=== PATIENT | male | born 1980 | race Caucasian/White ===

== ENCOUNTER 2017-04-14 23:10 | Emergency (ER) | payer OTHER, SELFPAY ==
[2017-04-14 23:10] VITALS: BP 128/89; PULSE 72; RESP 16; TEMP 36.6; O2SAT 97; BMI 25.0
--- NOTE | 2017-04-14 23:27 | ED.DCSUM_ITS ---
- ER Visit Summary Date of Service: 04/14/17 Chief Complaint: [] Right ear pain History of Present Illness: The patient is a 36 M patient stated he inserted a Q -tip too far to his right ear canal and had pain and some bleeding. He has had this happen in the past. He is not ruptured his TM however. Comes in for further evaluation. Current severity mild. No home treatment. Physical Examination: Vital signs reviewed General: Well-nourished well-developed Head: Normocephalic atraumatic Eyes: Pupils equal round and reactive to light extraocular movements intact ENT: Right ear exam shows some very mild bleeding in the canal. TM appears normal without perforation. I can see 90% of it. Neck: Nontender full range of motion Cardiovascular: Regular rate rhythm no murmurs normal S1-S2 Respiratory: No distress clear to auscultation bilaterally chest nontender Abdomen: Soft nontender nondistended normal bowel sounds no masses Back: Nontender no CVA tenderness Extremities: Nontender active range of motion ?4 extremities no trauma Skin: Normal color no trauma Neuro alert oriented cranial nerves II through XII intact normal strength sensation reflexes Test Results: [] Emergency Department Course and Treatment: [] Reassured. He has no hearing loss or ringing in his ear. I do not feel he has TM rupture. Looks like he has an abrasion in his ear canal. Instructed not to use Q-tips. He will follow -up with ENT as needed. Treatment Plan: [] Disposition: [] Impression: [] Right ear canal abrasion This note was generated with [employer] dictation software. It may contain incorrect words, spelling, and punctuation that were not noted in review of the chart prior to signing ED Disposition - Plan for ED Patient: Chief Complaint: Ear Problem
--- NOTE | 2017-04-14 23:27 | ED.DEP ---
ED Disposition - Plan for ED Patient: Disposition: Home or Assisted Living Chief Complaint: Ear Problem Instructions: ED Abrasion Referrals: Joce Ruff MD [STAFF PHYSICIAN] -
== END 2017-04-14 23:42 | disposition home or self-care (01) ==
LOC: ED 23:36
PROVIDERS: Emergency Provider Emergency Medicine
DX: S00.411A Abrasion of right ear, initial encounter (principal); X58.XXXA Exposure to other specified factors, initial encounter; Y93.9 Activity, unspecified; Y92.9 Unspecified place or not applicable
CPT/HCPCS: 99281

== ENCOUNTER 2020-06-09 16:01 | Emergency (ER) | payer OTHER, SELFPAY ==
[2020-06-09 16:02] VITALS: BP 135/101; PULSE 95; RESP 16; TEMP 36.4; O2SAT 98; BMI 29.2
--- NOTE | 2020-06-09 16:25 | EKG12_ITS ---
Test Reason : CHESTPAIN Blood Pressure : / mmHG Vent. Rate : 093 BPM Atrial Rate : 093 BPM P-R Int : 166 ms QRS Dur : 092 ms QT Int : 348 ms P-R-T Axes : 037 001 021 degrees QTc Int : 432 ms Normal sinus rhythm Normal ECG Confirmed by IRAJ LAZARO, LAURA ([id number]), editor map LEONARD POSEY ([id number]) on 06/11/2020 11:51:52 AM Referred By: Confirmed By:LAURA GALO MD
[2020-06-09] MEDS: Aspirin 81 MG TAB.CHEW 324 MG PO (16:32)
[2020-06-09 16:34] VITALS: O2SAT 99
--- NOTE | 2020-06-09 16:40 | RAD_ITS ---
STUDY: X-RAY CHEST REASON FOR EXAM: Male, 40 years old. Chest pain TECHNIQUE: Single frontal view of the chest. COMPARISON: None. FINDINGS: There are a few linear opacities within the left lower lung. Normal size heart. Normal mediastinum and luis. Normal visualized pulmonary arteries. Normal visualized aortic arch and descending thoracic aorta. Normal visualized thoracic spine. Normal visualized ribs, clavicles, and shoulders. There is no demonstrated abnormality of the visualized soft tissue structures of the upper abdomen. RAD/Chest 1 View (Portable) IMPRESSION: Minimal atelectasis and/or scarring within the left lower lung. Electronically Signed: Donna Bang MD at 16:52 EDT Tel , Service support ,
[2020-06-09 16:45] LABS: Absolute Lymphocyte Count 2.25 X10^3/uL (0.83-4.51); Absolute Neutrophil Count 5.4 X10^3/uL (2.0-7.7); Basophil# 0.07 X10^3/uL; Basophil% 0.8 % (0-1); Eosinophil# 0.08 X10^3/uL; Eosinophils% 0.9 % (0-5); Hematocrit 46.9 % (40-54); Hemoglobin 15.7 g/dL (13.0-16.5); Lymphocyte # 2.25 X10^3/ul (0.83-4.51); Lymphocyte % 26.7 % (19-41); Mean Corp Hgb Conc 33.5 g/dL (32-36); Mean Corpuscular Hgb 28.1 pg (27.0-32.0); Mean Corpuscular Volume 83.9 fL (80-94); Mean Platelet Vol. 10.4 fl (6.2-12.0); Monocyte# 0.64 X10^3/uL; Monocyte% 7.6 % (0-10); NRBC Flagged by Analyzer 0 % (0-5); Neutrophil # 5.38 X10^3/uL (2.7-7.7); Neutrophil % 63.8 % (47-70); Platelet Count 362 K/mm3 (150-450); RBC Distribution Width CV 13.7 % (11.6-14.6); RBC Distribution Width SD 42.2 fl (35.1-43.9); Red Blood Count 5.59 M/mm3 (4.6-6.2); White Blood Count 8.4 K/mm3 (4.4-11.0)
--- NOTE | 2020-06-09 16:55 | ED.DCSUM_ITS ---
History of Present Illness Chief Complaint: Chest Pain Informant: Patient Onset: Today Maximum Severity: Mild Narrative: Patient presents complaining of chest pressure that occurred around 9:00 today just after he had completed having sexual relations. Similar post sex chest pain occurred a few weeks ago he did not see a physician, he describes the pain as a tightness does not radiate he has no diaphoresis fever cough no numbness weeks paresthesias, he does not use any medications to enhance sexual performance, he is in fact on no medications other meds for H. pylori and acid reflux. He is having normal bowel bladder habits no fever no cough no coronavirus exposures Past Medical History - Allergies and Home Meds Allergies/Adverse Reactions: Allergies No Known Allergies Allergy (Verified 06/09/20 16:03) Primary Care Physician: NOT,DEFINED [NON-STAFF] - Past Medical History: - - GERD and H. pylori Smoking Status: Former smoker Review of Systems General: Denies: Chills, Fever, Sweats Eyes: Denies: Visual changes - bilaterally, Diplopia ENT: Denies: Rhinorrhea, Sore throat Cardiovascular: Reports: Chest pain. Denies: Palpitations Respiratory: Denies: Dyspnea, Cough, Dyspnea on exertion Gastrointestinal: Denies: Abdominal pain, Nausea, Vomiting, Diarrhea, Melena, Hematochezia Genitourinary: Denies: Dysuria, Hematuria, Frequency Musculoskeletal: Denies: Back pain, Extremity Pain Skin: Denies: Rash, Wounds Neurological: Denies: Headache, Weakness, Numbness Physical Exam Vital Signs/Narrative: Vital Signs Temp Pulse Resp BP Pulse Ox 06/09/20 16:34 99 06/09/20 16:02 97.6 F L 95 16 135/101 H 98 General: Well nourished, Well developed, No Acute Distress Head: Normocephalic, Atraumatic Eyes: Perrl, EOMI ENT: Moist mucous membranes, No rhinorrhea Neck: Supple, Nontender Cardiovascular: Regular rate, Regular rhythm, No murmurs Respiratory: No distress, CTA bilaterally, Chest nontender Abdomen: Soft, Nontender, Nondistended, Normal bowel sounds Back: Nontender, Normal Inspection Extremities: Nontender, No edema Skin: Normal color, No rash Neurological: Alert, Oriented x3, Cranial nerves II-XII grossly intact, Normal Strength, Normal Sensation Psychological: Normal affect, Normal Mood Diagnostic/Tx/Re-eval - Medical Decision Making Patient has no cardiovascular risk factors no hypertension diabetes he does not experience chest pain when he exerts himself, he had a similar episode that occurred with sex 3 weeks ago that resolved spontaneously not see his physicians, he is currently on antibiotics and antiacid medications for GERD and H. pylori. He is resting comfortably the bed he complains of the chest pain is very mild describes as a pressure does not radiate his vital signs are unremarkable, his EKG shows a sinus rhythm rate of 90 no acute injury pattern given all the above ED evaluation\ ED evaluation was unremarkable see the labs, 1 view chest x-ray to my review shows normal cardiopulmonary structures just radiology generally concur see that report, on evaluation he is resting comfortably bed his vital signs remained stable he has no complaints I discussed the differential with him eluding coronary syndrome acute PR etc. we discussed inpatient versus outpatient management, additional ED testing declined, he does not wish to be admitted he is feeling better prefers outpatient management understands the risks involved a nd wants to see his outpatient providers will return for change in symptoms Home stable declined admission Final impression chest pain after sex ED Disposition - Plan for ED Patient: Instructions: ED Chest Pain, Uncertain Cause Referrals: NOT,DEFINED [NON-STAFF] - Additional Instructions: Please follow-up with your outpatient providers return for change in symptoms
[2020-06-09 17:37] LABS: Anion Gap 3 (5-15); BUN 13 mg/dL (7-18); BUN/Creat Ratio 11.4 RATIO (10-20); Calcium,Total 9.3 mg/dL (8.5-10.1); Chloride 107 mmol/L (98-107); Creatinine, Serum 1.14 mg/dL (0.70-1.30); EST Glomerular Filtration Rate 76 mL/min (>60); Est Glom Filt Rate - Afr Amer 92 mL/min (>60); Estimated Creatinine Clearance 81.34 ml/min; Glucose 87 mg/dL (74-106); Potassium 3.6 mmol/L (3.5-5.1); Sodium Level 139 mmol/L (136-145)
[2020-06-09 18:30] VITALS: BP 120/88; PULSE 85; RESP 18; O2SAT 96
== END 2020-06-09 18:33 | disposition home or self-care (01) ==
PROVIDERS: Emergency Provider Emergency Medicine
DX: R07.9 Chest pain, unspecified (principal); K21.9 Gastro-esophageal reflux disease without esophagitis; Z87.891 Personal history of nicotine dependence
CPT/HCPCS: 71045; 80048; 84484; 85025; 93005; 96374; 96375; 99284; A4216; J2405

== ENCOUNTER 2021-02-05 15:18 | Emergency (ER) | payer OTHER, SELFPAY ==
[2021-02-05 15:19] VITALS: BP 146/95; PULSE 76; RESP 18; TEMP 36.5; O2SAT 97; BMI 29.1
--- NOTE | 2021-02-05 15:59 | CT_ITS ---
STUDY: CT ABDOMEN AND PELVIS WITH CONTRAST REASON FOR EXAM: Male, 40 years old. LLQ pain -- IV PO Contrast RADIATION DOSAGE (If Supplied By Facility): CTDIvol = ( 10.88 ) mGy, DLP = ( 653.08 ) mGycm TECHNIQUE: Transaxial images were obtained from the dome of the diaphragm to the symphysis pubis with oral contrast. IV 100mL Isovue-370 was administered. Sagittal and coronal images were reconstructed. Individualized dose optimization techniques were used for this CT. COMPARISON: None. FINDINGS: The visualized lung bases are unremarkable. The visualized portions of the heart are within normal limits. Normal liver. Normal gallbladder and extrahepatic biliary system. Normal spleen. Normal pancreas. Normal bilateral adrenal glands. No hydronephrosis. Left renal cysts, No required imaging follow-up needed given high likelihood of benign nature. Normal visualized stomach. Normal small intestine. Long segment wall thickening involving the descending colon beginning at the splenic flexure and extending into the sigmoid colon. Minimal amount of adjacent stranding. The appendix is visualized and appears normal. Normal abdominal aorta. Normal inferior vena cava. Normal retroperitoneum. Normal urinary bladder. There is a small umbilical hernia containing fat. Normal osseous structures. CT/Abdomen/Pelvis WITH Contrast IMPRESSION: Long segment wall thickening of the descending colon, favoring colitis (most commonly infectious colitis or inflammatory bowel disease). Electronically Signed: Lee Rao MD (Brooks) at 18:08 EST , Service support ,
--- NOTE | 2021-02-05 16:01 | EDS_ITS ---
HPI History of Present Illness Chief Complaint: General Illness Informant: patient and spouse/S.O. Onset/Context/Timing Onset: Days Narrative Narrative: Patient presents secondary to cold symptoms for the last 4 days. Has had increased mucus with minimal cough. Low-grade fever noted. Is been taking Mucinex and NyQuil at home. Last evening he developed sharp cramping left lower quadrant abdominal pain with constipation. Patient states today he is passing blood rectally. Patient has no known history of diverticulitis. He is never had a colonoscopy but did have an upper endoscopy. [facility] Medical History (Updated 02/05/21 @ 19:[address] Josephine Yeh MD) H. pylori infection History of gastroesophageal reflux (GERD) Migraines Home Medications ciprofloxacin HCl [Cipro] 500 mg PO BID #20 tab 02/05/21 [Rx Last Taken Unknown] metronidazole 500 mg PO BID 10 Days #20 tab 02/05/21 [Rx Last Taken Unknown] prednisone 20 mg PO DAILY #7 tab 02/05/21 [Rx Last Taken Unknown] Allergy/AdvReac Type Severity Reaction Status Date / Time No Known Allergies Allergy Verified 02/05/21 15:21 Social History Smoking Status: Never smoker ROS ROS ED Constitutional Constitutional ED: Reports chills and fever(s) Eyes Eyes: Denies change in vision ENT ENT ED: Reports other Details: Congestion ; Denies sore throat Cardiovascular Cardiovascular: Denies chest pain Respiratory/Chest Respiratory/Chest: Reports cough; Denies dyspnea Gastrointestinal Gastrointestinal: Reports abdominal pain and other Details: Bright red blood per rectum ; Denies diarrhea, nausea or vomiting Genitourinary Genitourinary ED: Denies dysuria Musculoskeletal Musculoskeletal: Denies back pain Integumentary Denies rash Neurologic Neurologic: Denies headache(s) or weakness Allergic/Immunologic Allergic/Immunologic ED: Denies urticaria EXAM Physical Exam Const Vital Signs: 02/05/21 15:19 02/05/21 16:24 02/05/21 18:27 Temperature 97.7 F L Temperature Source Temporal Pulse Rate 76 67 Respiratory Rate 18 13 Respiratory Effort Normal Non-Labored Respiratory Pattern Normal Blood Pressure 146/95 H 138/94 H Blood Pressure Mean 112 108 Pulse Ox 97 97 Oxygen Delivery Method Room Air Room Air Positive well nourished and well developed General Appearance ED: well developed Eyes PERRL and EOMs intact bilaterally Neck supple Chest Wall inspection of chest normal and palpation of chest normal Resp normal respiratory effort and clear to auscultation bilaterally Cardio regular rate and regular rhythm GI Auscultation: hypoactive bowel sounds Palpation: soft and tender LLQ; Negative for guarding or rebound tenderness present Extremity normal to inspection Neuro oriented x3 Sensorium / Orientation: alert Skin no rashes or lesions noted MDM MDM MDM Narrative Medical decision making narrative: Patient was given morphine and Zofran for pain. Lab work, Covid test, CT abdomen pelvis with contrast obtained. Lab Data Attestation: I reviewed the patient's lab results. Labs: Laboratory Results - last 24 hr 02/05/21 02/05/21 02/05/21 16:10 16:10 16:10 WBC 15.8 H RBC 5.54 Hgb 15.9 Hct 46.0 MCV 83.0 MCH 28.7 MCHC 34.6 RDW Std Deviation 41.5 RDW Coeff of Ivan 13.7 Plt Count 341 MPV 9.8 Immature Gran % (Auto) 0.300 Neut % (Auto) 77.6 H Lymph % (Auto) 14.5 L [place] % (Auto) 6.0 Eos % (Auto) 1.2 Baso % (Auto) 0.4 Absolute Neuts (auto) 12.3 H Absolute Lymphs (auto) 2.30 Nucleated RBC % 0 PT 12.5 INR 1.0 APTT 30.0 Sodium 139 Potassium 3.5 Chloride 103 Carbon Dioxide 29.0 Anion Gap 7 BUN 10 Creatinine 0.97 Estim Creat Clear Calc 95.59 Est GFR (MDRD) Af Amer 111 Est GFR (MDRD) Non-Af 92 BUN/Creatinine Ratio 10.4 Glucose 102 Lactic Acid Calcium 9.3 Total Bilirubin 0.60 Direct Bilirubin 0.14 AST 29 ALT 78 H Alkaline Phosphatase 84 Total Protein 7.9 Albumin 4.1 Globulin 3.8 02/05/21 16:10 WBC RBC Hgb Hct MCV MCH MCHC RDW Std Deviation RDW Coeff of Ivan Plt Count MPV Immature Gran % (Auto) Neut % (Auto) Lymph % (Auto) [place] % (Auto) Eos % (Auto) Baso % (Auto) Absolute Neuts (auto) Absolute Lymphs (auto) Nucleated RBC % PT INR APTT Sodium Potassium Chloride Carbon Dioxide Anion Gap BUN Creatinine Estim Creat Clear Calc Est GFR (MDRD) Af Amer Est GFR (MDRD) Non-Af BUN/Creatinine Ratio Glucose Lactic Acid 1.0 Calcium Total Bilirubin Direct Bilirubin AST ALT Alkaline Phosphatase Total Protein Albumin Globulin Rapid Covid: Negative Radiography Diagnostic Testing: Clinical Impression(s) from Imaging Studies Abdomen/Pelvis CT 02/05/21 15:59 IMPRESSION: Long segment wall thickening of the descending colon, favoring colitis (most commonly infectious colitis or inflammatory bowel disease). Electronically Signed: Lee Rao MD ([place]oks) at 18:08 EST , Service support , Treatment and Re-Evaluation Comments:: Lab work reviewed and elevation of white count of 15.8 noted. Coags unremarkable. Chemistry studies normal. Lactic acid normal at 1.0. CT scan of the abdomen pelvis shows colitis of the descending colon. Patient does report having 1 bowel movement here which was mixed stool and blood. I spoke with AMADEO Howard, and reviewed the patient's findings. He is comfortable with the patient being discharged home on a 7-day course of prednisone 20 mg as well as antibiotics. He will see the patient in the office next week. Patient is given return instructions. He is comfortable with this plan. Discharge Plan Triage Chief Complaint: General Illness ED Provider: Josephine Yeh Dx/Rx/DC Orders Clinical Impression: Colitis Instructions: ED Gastroenteritis, Bacterial (Adult) Prescriptions: New ciprofloxacin HCl [Cipro] 500 mg tablet 500 mg PO BID Qty: 20 RF: 0 metronidazole 500 mg tablet 500 mg PO BID 10 Days Qty: 20 RF: 0 prednisone 20 mg tablet 20 mg PO DAILY Qty: 7 RF: 0 Primary Care Provider: [facility] Referrals: Arturo Rios DO [STAFF PHYSICIAN] - 5-7 Days [facility] [Primary Care Provider] - Disposition Disposition: Home, Self Care
[2021-02-05] MEDS: Morphine 4 MG/ML Syringe IV ×2 (16:14→19:08)
[2021-02-05] MEDS: Ondansetron 4 MG/2 ML Vial IV ×2 (16:15→19:08)
[2021-02-05 16:19] LABS: Absolute Neutrophil Count 12.3 X10^3/uL (2.0-7.7); Basophil# 0.07 X10^3/uL; Basophil% 0.4 % (0-1); Eosinophil# 0.19 X10^3/uL; Eosinophils% 1.2 % (0-5); Hemoglobin 15.9 g/dL (13.0-16.5); Lymphocyte % 14.5 % (19-41); Mean Corp Hgb Conc 34.6 g/dL (32-36); Mean Corpuscular Hgb 28.7 pg (27.0-32.0); Mean Platelet Vol. 9.8 fl (6.2-12.0); Monocyte# 0.95 X10^3/uL; NRBC Flagged by Analyzer 0 % (0-5); Neutrophil # 12.26 X10^3/uL (2.7-7.7); Neutrophil % 77.6 % (47-70); Platelet Count 341 K/mm3 (150-450); RBC Distribution Width CV 13.7 % (11.6-14.6); RBC Distribution Width SD 41.5 fl (35.1-43.9); Red Blood Count 5.54 M/mm3 (4.6-6.2); White Blood Count 15.8 K/mm3 (4.4-11.0)
[2021-02-05 16:28] LABS: Prothrombin Time (Protime)PT. 12.5 SECONDS (11.7-14.9)
[2021-02-05 16:34] LABS: AST(SGOT) 29 U/L (15-37); Alanine Aminotransfer ALT/SGPT 78 U/L (16-61); Albumin, Serum 4.1 g/dL (3.2-5.0); Alkaline Phosphatase 84 U/L (45-117); Anion Gap 7 (5-15); BUN 10 mg/dL (7-18); BUN/Creat Ratio 10.4 RATIO (10-20); Bilirubin, Direct 0.14 mg/dL (0.00-0.30); Calcium,Total 9.3 mg/dL (8.5-10.1); Chloride 103 mmol/L (98-107); Creatinine, Serum 0.97 mg/dL (0.70-1.30); EST Glomerular Filtration Rate 92 mL/min (>60); Est Glom Filt Rate - Afr Amer 111 mL/min (>60); Estimated Creatinine Clearance 95.59 ml/min; Globulin 3.8 g/dL (2.2-4.2); Glucose 102 mg/dL (74-106); Potassium 3.5 mmol/L (3.5-5.1); Protein, Total 7.9 g/dL (6.4-8.2); Sodium Level 139 mmol/L (136-145)
[2021-02-05 18:27] VITALS: BP 138/94; PULSE 67; RESP 13; O2SAT 97
[2021-02-05] MEDS: Dicyclomine 20 MG/2 ML Vial IM (19:07)
[2021-02-05] MEDS: Ciprofloxacin 500 MG Tablet PO (19:55)
[2021-02-05] MEDS: predniSONE 20 MG Tablet PO (19:55)
[2021-02-05] MEDS: metroNIDAZOLE 500 MG Tablet PO (19:55)
[2021-02-05 20:16] VITALS: BP 134/79; PULSE 80; RESP 17; O2SAT 98
== END 2021-02-05 20:17 | disposition home or self-care (01) ==
PROVIDERS: Emergency Provider Emergency Medicine
DX: A09 Infectious gastroenteritis and colitis, unspecified (principal); Z20.822 Contact with and (suspected) exposure to COVID-19; K62.5 Hemorrhage of anus and rectum; K59.00 Constipation, unspecified; K21.9 Gastro-esophageal reflux disease without esophagitis
CPT/HCPCS: 74177; 80048; 80076; 83605; 85025; 85610; 85730; 87426; 96372; 96374; 96375; 96376; 99285; Q9967; A4216; J2405

== ENCOUNTER 2021-03-04 09:23 | Outpatient (CLI) | payer OTHER, SELFPAY ==
[2021-03-04 10:00] LABS: Erythrocyte Sedimentation Rate 3 mm/hr (0-20)
[2021-03-04 10:03] LABS: Absolute Lymphocyte Count 1.89 X10^3/uL (0.83-4.51); Absolute Neutrophil Count 6.4 X10^3/uL (2.0-7.7); Basophil% 1.1 % (0-1); Eosinophil# 0.45 X10^3/uL; Eosinophils% 4.8 % (0-5); Hematocrit 47.3 % (40-54); Hemoglobin 15.5 g/dL (13.0-16.5); Lymphocyte # 1.89 X10^3/ul (0.83-4.51); Mean Corp Hgb Conc 32.8 g/dL (32-36); Mean Corpuscular Hgb 27.9 pg (27.0-32.0); Mean Corpuscular Volume 85.2 fL (80-94); Mean Platelet Vol. 10.3 fl (6.2-12.0); Monocyte# 0.61 X10^3/uL; Monocyte% 6.5 % (0-10); NRBC Flagged by Analyzer 0 % (0-5); Neutrophil # 6.36 X10^3/uL (2.7-7.7); Neutrophil % 67.3 % (47-70); Platelet Count 316 K/mm3 (150-450); RBC Distribution Width CV 13.8 % (11.6-14.6); RBC Distribution Width SD 43.1 fl (35.1-43.9); Red Blood Count 5.55 M/mm3 (4.6-6.2); White Blood Count 9.4 K/mm3 (4.4-11.0)
[2021-03-04 10:10] LABS: ALB/GLOB Ratio 1.1 RATIO (0.9-2.4); AST(SGOT) 46 U/L (15-37); Alanine Aminotransfer ALT/SGPT 96 U/L (16-61); Albumin, Serum 4.1 g/dL (3.2-5.0); Alkaline Phosphatase 81 U/L (45-117); Anion Gap 3 (5-15); BUN 12 mg/dL (7-18); BUN/Creat Ratio 13.8 RATIO (10-20); CRP < 2.90 mg/L (0.0-3.0); Calcium,Total 9.6 mg/dL (8.5-10.1); Chloride 107 mmol/L (98-107); Creatinine, Serum 0.87 mg/dL (0.70-1.30); EST Glomerular Filtration Rate 103 mL/min (>60); Est Glom Filt Rate - Afr Amer 125 mL/min (>60); Globulin 3.9 g/dL (2.2-4.2); Glucose 105 mg/dL (74-106); Potassium 4.6 mmol/L (3.5-5.1); Sodium Level 138 mmol/L (136-145)
== END 2021-03-04 23:59 | disposition short-term general hospital (02) ==
LOC: LAB 09:24
PROVIDERS: Referring Provider Internal Medicine Gastroenterology; Visit Provider Internal Medicine Gastroenterology
DX: K51.90 Ulcerative colitis, unspecified, without complications (principal); R19.7 Diarrhea, unspecified
CPT/HCPCS: 36415; 80053; 85025; 85652; 86140

== ENCOUNTER 2021-03-07 09:39 | Outpatient (CLI) | payer OTHER, SELFPAY ==
[2021-03-08 17:15] LABS: ANTINUCLEAR ANTIBODIES DIRECT Negative (Negative); Anti-Mitochondrial AB <20.0 Units (0.0-20.0)
[2021-03-09 09:32] LABS: Angiotensin Convert Enzyme 31 U/L (14-82); Ceruloplasmin 23.8 mg/dL (16.0-31.0); Endomysial Antibody IgA Negative (Negative); HEPATITIS B SURFACE AG Negative (Negative); Hepatitis A IgM Antibody Negative (Negative); Hepatitis B Core AB IgM Negative (Negative); Immunoglobulin A 329 mg/dL (90-386)
[2021-03-09 09:49] LABS: Anti-Smooth Muscle ABS 11 Units (0-19); Copper, Serum or Plasma 108 ug/dL (69-132); Hep C Antibodies <0.1 s/co ratio (0.0-0.9); t-Transglutaminase IgA <2 U/mL (0-3)
[2021-03-10 09:08] LABS: H. PYLORI STOOL AG Negative (Negative)
[2021-03-10 09:22] LABS: Giardia Lamblia, Stool EIA Negative (Negative)
[2021-03-10 16:35] LABS: Calprotectin, Stool <16 ug/g (0-120)
--- NOTE | 2021-03-31 13:23 | PCM.HP.BLA ---
History and Physical Date of Admission: 04/05/21 Intake Visit Reasons: COLITIS- [facility] ER REFERRED Allergies No Known Allergies Allergy (Verified 02/05/21 15:21) [facility] Medical History (Updated 03/04/21 @ 21:[address] Arturo iRos, DO) Diarrhea H. pylori infection History of gastroesophageal reflux (GERD) Migraines Ulcerative colitis Ulcerative colitis Social History Smoking Status: Never smoker HPI HPI Details: GEETA HEALY, is a 40 M who presents to the office today for Presented to [facility] ED 02/05/21 for evaluation of cold symptoms x4days with onset of sharp cramping of LLQ abd with constipation and blood in stool. Discharged with antibiotic therapy, prednisone and instructed to follow up with this office. CT abd/pel performed at ED. Long segment wall thickening in descending colon beginning at splenic flexure and extending to sigmoid colon with minimal adjacent stranding; favoring infectious colitis versus IBD. ROS Const Constitutional: Positive for headache(s) ENT ENT: Positive for headache(s) Gastro GI: Positive for bloating, change in bowel habits, constipation, diarrhea, heartburn and nausea/dyspepsia Musc Musculoskeletal: Positive for back pain and stiffness Neuro Neurology: Positive for headache(s) Psych Psychiatric: Positive for anxiety Exam Const General: cooperative and comfortable Nutritional Appearance: average body habitus and well nourished [facility] Head: normal to inspection Ears: hearing grossly normal bilaterally Nose: external nose normal Face and sinus: normal facial exam Mouth: oral mucosae normal Throat: posterior oropharynx normal Eyes General: appearance normal, both eyes and all related structures Neck Neck: normal visual inspection Chest Chest palpation & inspection: normal inspection of the chest and normal palpation of entire chest wall Resp Effort & Inspection: normal respiratory effort Auscultation: Bilateral: Clear to Auscultation Cardio Palpation: normal PMI Rate: regular rate Rhythm: regular rhythm GI Inspection: normal to inspection Auscultation: normal bowel sounds Percussion: normal to percussion Palpation: no hepatosplenomegaly Skin General: no rashes or lesions noted Neuro General: patient alert Extrem General: normal to inspection Psych Affect: normal affect Quality Reporting Tobacco Screening ([facility] 138) Smoking Status: Never smoker Assessment and Plan Assessment and Plan (1) Ulcerative colitis: Status: Acute Orders: Orders: Comprehensive Metabolic Profil Today CRP Today CBC W/Diff, Automated Today Erythrocyte Sed Rate Today Calprotectin, Stool Today ENTERIC PATHOGEN PANEL STOOL Today Stool Occult Blood iFOB Today Stool Lactoferrin/WBC Today Giardia Lamblia, Stool EIA Today H. PYLORI STOOL AG Today Plan - Dr. Morris Friend, DO: The differential diagnosis for lower GI bleeding associated with diarrhea would be infectious colitis, inflammatory bowel disease, ischemic colitis. He will undergo colonoscopy for evaluation of the lower GI tract. We will also recheck a CBC, CMP, ESR, CRP, stool for enteric pathogen, stool for lactoferrin, stool for Giardia and stool for H. pylori due to his history of H. pylori. No change in H&P
== END 2021-03-07 23:59 | disposition short-term general hospital (02) ==
LOC: LAB 09:41
PROVIDERS: Referring Provider Internal Medicine Gastroenterology; Visit Provider Internal Medicine Gastroenterology
DX: K51.90 Ulcerative colitis, unspecified, without complications (principal); R19.7 Diarrhea, unspecified
CPT/HCPCS: 36415; 80074; 82164; 82274; 82390; 82525; 82784; 83516; 83630; 83993; 86038; 86225; 86235; 86255; 87329; 87506

== ENCOUNTER 2021-04-05 13:53 | Day surgery (SDC) | payer OTHER, SELFPAY ==
[2021-04-05 14:22] VITALS: BP 123/84; PULSE 84; RESP 18; TEMP 36.7; O2SAT 96; BMI 26.1
[2021-04-05] MEDS: Lactated Ringers 1,000 ML 15 ML IV (14:32)
--- NOTE | 2021-04-05 15:00 | COLBX_PTH ---
PATIENT: GEETA HEALY LOC: EN U#:[id number] AGE/SX: 40/M ROOM: RE04/05/[address]: Dr. Arturo Rios DO : 1980 BED: DIS: 04/05/2021 SPEC #: [id number] RECD: 04/05/21 16:49 STATUS: KAVEH SEVERIANO #: [id number] EMILY: 04/05/21 15:[address]: Arturo Rios DEPT: SURGICAL PATHOLOGY RECD BY: Mattie Vázquez ENTERED: 04/06/21 08:47 SP TYPE: COLON BX DAYSI DR: [facility] Tissues: A - Ileum, NOS B - COLON BIOPSY Procedures: Surgery Specimen Level IV HEADER OPERATION: Colonoscopy with biopsy (MAC) PRE-OP DIAGNOSIS: Ulcerative colitis TISSUE SUBMITTED: A ? Terminal ileum biopsy, B ? Random colon biopsy MICROSCOPIC DIAGNOSIS A. Terminal ileum, biopsy: Fragments of small intestinal mucosa, no pathologic diagnosis. See comment. B. Colon, random biopsy: Fragments of colonic mucosa, no pathologic diagnosis. VAIBHAV:john 04/07/2021 COMMENT A. Prominent lymphoid aggregates are noted, favor benign. MICROSCOPIC DESCRIPTION Slides are reviewed. GROSS DESCRIPTION A - Received in fixative is one container labeled with the patient's name and designated biopsy terminal ileum. The specimen consists of two irregular fragments of light crump soft tissue that in aggregate measure 0.6 x 0.3 x 0.1 cm. The specimen is totally submitted in one cassette. B - Received in fixative is one container labeled with the patient's name and designated biopsy random colon. The specimen consists of multiple irregular fragments of light crump soft tissue that in aggregate measure 2 x 0.5 x 0.1 cm. The specimen is totally submitted in one cassette. / VAIBHAV:john 04/06/2021 TC:4 CPT: 72289 x2
[2021-04-05 15:50] VITALS: BP 113/80; BP 123/84; PULSE 73; RESP 16; TEMP 36.4; O2SAT 100
[2021-04-05 15:55] VITALS: BP 120/81; BP 123/84; PULSE 68; RESP 16; O2SAT 100
--- NOTE | 2021-04-05 15:57 | OP.CCLET_ITS ---
11/14/2021 [facility] Re : [facility] This procedure was performed on Monday, April 05, 2021. My impressions and recommendations are as follows: Impressions : - Congested mucosa in the recto-sigmoid colon, in the descending colon, in the ascending colon and in the cecum. Biopsied. - Congested mucosa in the terminal ileum. Biopsied. Recommendations : - Discharge patient to home. - Resume previous diet. - Continue present medications. - Await pathology results. - Await pathology results. - Repeat colonoscopy in 5 years for surveillance based on pathology results. My findings are described in the full procedure note, which is enclosed. If I can be of further assistance, please feel free to contact me at . Sincerely, Arturo Rios, 04/05/2021 3:57:04 PM This report has been signed electronically.
--- NOTE | 2021-04-05 15:57 | OP.COLON_ITS ---
Patient Name: Xavier Givens Procedure Date: 04/05/2021 3:22 PM Date of : 1980 Age: 40 Procedure: Colonoscopy Indications: Clinically significant diarrhea of unexplained origin, Abnormal CT of the GI tract Providers: Arturo Rios DO Referring MD: Arturo Rios DO Medicines: See the Anesthesia note for documentation of the administered medications Patient Profile: This is a 40 year old male. Refer to note in patient chart for documentation of history and physical. Last Colonoscopy: 3 years ago. Complications: No immediate complications. Procedure: Pre-Anesthesia Assessment: - Prior to the procedure, a History and Physical was performed, and patient medications and allergies were reviewed. The risks and benefits of the procedure and the sedation options and risks were discussed with the patient. All questions were answered and informed consent was obtained. Patient identification and proposed procedure were verified by the physician in the pre-procedure area. Mental Status Examination: alert and oriented. Airway Examination: normal oropharyngeal airway and neck mobility. Respiratory Examination: clear to auscultation. CV Examination: normal. Prophylactic Antibiotics: The patient does not require prophylactic antibiotics. Prior Anticoagulants: The patient has taken no previous anticoagulant or antiplatelet agents. ASA Grade Assessment: II - A patient with mild systemic disease. After reviewing the risks and benefits, the patient was deemed in satisfactory condition to undergo the procedure. The anesthesia plan was to use moderate sedation / analgesia (conscious sedation). Immediately prior to administration of medications, the patient was re-assessed for adequacy to receive sedatives. The heart rate, respiratory rate, oxygen saturations, blood pressure, adequacy of pulmonary ventilation, and response to care were monitored throughout the procedure. The physical status of the patient was re-assessed after the procedure. After I obtained informed consent, the scope was passed under direct vision. Throughout the procedure, the patient's blood pressure, pulse, and oxygen saturations were monitored continuously. The colonoscope was introduced through the anus and advanced to the terminal ileum. The colonoscopy was performed without difficulty. The patient tolerated the procedure well. The quality of the bowel preparation was good. Moderate Sedation: Moderate (conscious) sedation was administered by the endoscopy nurse and supervised by the endoscopist. The following parameters were monitored: oxygen saturation, heart rate, blood pressure, and response to care. Total physician intraservice time was 15 minutes. Scope In: 3:34:53 PM Scope Withdrawal Time 0 hours 9 minutes 49 seconds Scope Out: 3:46:08 PM Total Procedure Duration Time 0 hours 11 minutes 15 seconds Findings: The perianal and digital rectal examinations were normal. An area of mildly congested mucosa was found in the recto-sigmoid colon, in the descending colon, in the ascending colon and in the cecum. Biopsies were taken with a cold forceps for histology. Verification of patient identification for the specimen was done. Estimated blood loss was minimal. A patchy area of the terminal ileum was congested. Biopsies were taken with a cold forceps for histology. Verification of patient identification for the specimen was done. Estimated blood loss was minimal. A single small-mouthed diverticulum was found in the cecum. Impression: - Congested mucosa in the recto-sigmoid colon, in the descending colon, in the ascending colon and in the cecum. Biopsied. - Congested mucosa in the terminal ileum. Biopsied. Recommendation: - Discharge patient to home. - Resume previous diet. - Continue present medications. - Await pathology results. - Await pathology results. - Repeat colonoscopy in 5 years for surveillance based on pathology results. Procedure Code(s): --- Professional --- 27469, Colonoscopy, flexible; with biopsy, single or multiple 15365, 59, Moderate sedation services provided by the same physician or other qualified health healthcare administrator performing the diagnostic or therapeutic service that the sedation supports, requiring the presence of an independent trained observer to assist in the monitoring of the patient's level of consciousness and physiological status; initial 15 minutes of intraservice time, patient age 5 years or older CPT copyright 2017 [employer]. All rights reserved. The codes documented in this report are preliminary and upon shot lighter review may be revised to meet current compliance requirements. Arturo Rios DO 04/05/2021 3:57:04 PM This report has been signed electronically. Number of Addenda: 1 Note Initiated On: 04/05/2021 3:22 PM Addendum Number: 1 Addendum Date: 11/14/2021 6:52:26 AM MAC was used for sedation during this procedure. Arturo Rios DO 11/14/2021 6:52:30 AM This report has been signed electronically.
[2021-04-05 16:00] VITALS: BP 121/82; BP 123/84; PULSE 65; RESP 16; O2SAT 100
[2021-04-05 16:05] VITALS: BP 123/84; BP 124/81; PULSE 63; RESP 16; TEMP 36.2; O2SAT 100
[2021-04-05 16:35] VITALS: BP 123/84
--- NOTE | 2021-04-05 17:32 | PCM.HP.BLA ---
History and Physical Date of Admission: 04/05/21 40 M who presents to the office today for Presented to [facility] ED 02/05/21 for evaluation of cold symptoms x4days with onset of sharp cramping of LLQ abd with constipation and blood in stool. Discharged with antibiotic therapy, prednisone and instructed to follow up with this office. CT abd/pel performed at ED. Long segment wall thickening in descending colon beginning at splenic flexure and extending to sigmoid colon with minimal adjacent stranding; favoring infectious colitis versus IBD. ROS Const Constitutional: Positive for headache(s) ENT ENT: Positive for headache(s) Gastro GI: Positive for bloating, change in bowel habits, constipation, diarrhea, heartburn and nausea/dyspepsia Musc Musculoskeletal: Positive for back pain and stiffness Neuro Neurology: Positive for headache(s) Psych Psychiatric: Positive for anxiety Exam Const General: cooperative and comfortable Nutritional Appearance: average body habitus and well nourished HENMT Head: normal to inspection Ears: hearing grossly normal bilaterally Nose: external nose normal Face and sinus: normal facial exam Mouth: oral mucosae normal Throat: posterior oropharynx normal Eyes General: appearance normal, both eyes and all related structures Neck Neck: normal visual inspection Chest Chest palpation & inspection: normal inspection of the chest and normal palpation of entire chest wall Resp Effort & Inspection: normal respiratory effort Auscultation: Bilateral: Clear to Auscultation Cardio Palpation: normal PMI Rate: regular rate Rhythm: regular rhythm GI Inspection: normal to inspection Auscultation: normal bowel sounds Percussion: normal to percussion Palpation: no hepatosplenomegaly Skin General: no rashes or lesions noted Neuro General: patient alert Extrem General: normal to inspection Psych Affect: normal affect Quality Reporting Tobacco Screening ([facility] 138) Smoking Status: Never smoker Assessment and Plan Assessment and Plan (1) Ulcerative colitis: Status: Acute Orders: Orders: Comprehensive Metabolic Profil Today CRP Today CBC W/Diff, Automated Today Erythrocyte Sed Rate Today Calprotectin, Stool Today ENTERIC PATHOGEN PANEL STOOL Today Stool Occult Blood iFOB Today Stool Lactoferrin/WBC Today Giardia Lamblia, Stool EIA Today H. PYLORI STOOL AG Today Plan - Dr. Morris Friend, DO: The differential diagnosis for lower GI bleeding associated with diarrhea would be infectious colitis, inflammatory bowel disease, ischemic colitis. He will undergo colonoscopy for evaluation of the lower GI tract. We will also recheck a CBC, CMP, ESR, CRP, stool for enteric pathogen, stool for lactoferrin, stool for Giardia and stool for H. pylori due to his history of H. pylori. There are no changes since the patient was seen in the office
== END 2021-04-05 23:59 | disposition home or self-care (01) ==
LOC: EN 13:54 → AC 13:55
PROVIDERS: Referring Provider Internal Medicine Gastroenterology; Visit Provider Internal Medicine Gastroenterology
PROC: 0DJD8ZZ Inspection of Lower Intestinal Tract, Via Natural or Artificial Opening Endoscopic (ICD-10-PCS; CPT 45378; principal; 2021-04-05 14:55)
DX: K51.90 Ulcerative colitis, unspecified, without complications (principal); K57.30 Diverticulosis of large intestine without perforation or abscess without bleeding; K63.89 Other specified diseases of intestine; R19.7 Diarrhea, unspecified; F41.9 Anxiety disorder, unspecified; K21.9 Gastro-esophageal reflux disease without esophagitis; Z79.899 Other long term (current) drug therapy
CPT/HCPCS: 45380; 87426; 88305; C9803; J7120; J2405